=== PATIENT | male | born 1960 | race Caucasian/White ===

== ENCOUNTER 2016-11-29 08:56 | Inpatient (IN) | payer OTHER ==
[2016-11-23 10:22] VITALS: BMI 27.0
--- NOTE | 2016-11-23 10:55 | PAT Medication Instructions ---
Service Date Nov 23, 2016. Current Home Medication List Naproxen (Aleve), 440 MG PO PRN Medication Instructions For Your Scheduled Surgery - Hold the following medications the morning of surgery: Naproxen (Aleve), 440 MG PO PRN (otherwise okay to continue per surgeon) Nothing to eat or drink after midnight If you have any questions please call us at [phone] or [phone] or [phone]
--- NOTE | 2016-11-23 11:47 | DIAGNOSTIC IMAGING REPORT ---
CHEST PREADMISSION(PA/LAT) CLINICAL HISTORY: PAT preoperative evaluation COMPARISON STUDY: No previous studies for comparison. FINDINGS: The bones soft tissues and hemidiaphragms are normal. The cardiomediastinal silhouette is normal. The lungs are clear. The pulmonary vasculature is normal. IMPRESSION: Negative chest. Electronically signed by: Donte Ybarra M.D. 11/23/2016 11:46 AM Dictated Date/Time: 11/23/2016 11:46 AM
[2016-11-23 12:06] LABS: BASO % 0.2 %; BASO ABS # 0.01 K/uL (0-0.2); COMPLETE YES; EOS % 1.5 %; HEMATOCRIT 45.3 % (42-52); IG% 0.2 %; LYMPH % 34.7 %; LYMPH ABS # 1.57 K/uL (1.2-3.4); MEAN CELL VOLUME 88.8 fL (80-100); MEAN CORPUSCULAR HGB CONC 34.9 g/dl (32-36); MEAN PLATELET VOLUME 10.6 fL (7.4-10.4); MONO % 8.2 %; NEUT % 55.2 %; PLATELET COUNT 202 K/uL (130-400); WHITE BLOOD COUNT 4.53 K/uL (4.8-10.8)
[2016-11-23 12:14] LABS: PROTHROMBIN TIME (PATIENT) 10.7 SECONDS (9.0-12.0)
[2016-11-23 12:33] LABS: URINE APPEARANCE CLEAR (CLEAR); URINE BILIRUBIN NEG (NEG); URINE COLOR YELLOW; URINE EPITHELIAL CELL AUTO 0-5 /lpf (0-5); URINE NITRITE NEG (NEG); URINE PH 6.5 (4.5-7.5); UROBILINOGEN NEG (NEG)
[2016-11-23 12:37] LABS: MANUAL MICROSCOPIC REQUIRED? NO; REVIEW REQ? NO
[2016-11-23 15:10] LABS: BUN/CREATININE RATIO 16.3 (10-20); CALCIUM 8.7 mg/dl (8.5-10.1); CREATININE 0.85 mg/dl (0.60-1.40); POTASSIUM 4.2 mmol/L (3.5-5.1)
[2016-11-29] VITALS (7 sets, daily range): BP systolic 110–139; BP diastolic 67–87; PULSE 63–86; TEMP 36.3–36.6; O2SAT 95–100; Ht 177.8 cm; Wt 110.4 kg
[~2016-11-29] VITALS: Ht 177.8 cm; Wt 110.4 kg
--- NOTE | 2016-11-29 07:41 | History and Physical ---
History & Physical Date Nov 29, 2016. Chief Complaint back and leg pain History of Present Illness The patient is a 55 year old male with complaints of back , lower extremity pain. Past Medical/Surgical History Healthy Additional History Hepatic Disease: No Endocrine Disorder: No Kidney Disease: No Hypertension: No Heart Disease: No Bleeding Tendencies: No Infectious Diseases: No Allergies Coded Allergies: Fish (Verified Allergy, Severe, ANAPHYLAXIS W/ ALL SEAFOOD, 11/25/16) Fish Allergy (Verified Allergy, Severe, ANAPHYLAXIS W/ ALL SEAFOOD, ) Shellfish (Verified Allergy, Severe, ANAPHYLAXIS W/ ALL SEAFOOD, 11/25/16) Shellfish Allergy (Verified Allergy, Severe, ANAPHYLAXIS W/ ALL SEAFOOD, ) Iodinated Diagnostic Agents (Verified Allergy, Unknown, ANAPHYLAXIS, ) Home Medications Scheduled Naproxen (Aleve), 440 MG PO PRN Physical Examination Skin: warm/dry Eyes: normal inspection, sclerae normal ENT: normal ENT inspection Head: normocephalic Neck: supple, trachea midline Respiratory/Chest: lungs clear, no respiratory distress Cardiovascular: regular rate, rhythm Abdomen / GI: normal bowel sounds Back: normal inspection Extremities: normal inspection Genitourinary - Male: normal male genitalia Diagnosis spinal stenosis and severe degenerative disc L5-S1 ASA Classification: ASA Class II Plan of Treatment PLIF L5-S1
[~2016-11-29 08:56] MED LIST: CEFAZOLIN 2000 MG/60 ML D5W 60 ML IV SCH; LACTATED RINGER'S 1000ML 1,000 ML IV SCH; NAPR1TAB9 PO; NSS 1000ML IV SCH
[2016-11-29] MEDS ORDERED: FENTANYL CITRATE INJ 50 MCG/1 ML 2 ML VIAL IV PRN (11:30)
[2016-11-29] MEDS ORDERED: EpHEDrine SULFATE INJ 50 MG/ML AMP IV PRN (11:30)
[2016-11-29] MEDS ORDERED: ATROPINE SULFATE 0.1 MG/ML 5ML SYR IV PRN (11:30)
[2016-11-29] MEDS ORDERED: ONDANSETRON INJ 2 MG/ML 2 ML VIAL IV PRN ×2 (11:30→16:00)
[2016-11-29] MEDS ORDERED: HYDROmorphone INJ 1 MG/ML SYR IV PRN (11:30)
[2016-11-29] MEDS ORDERED: GELATIN SPONGE SZ 100 ONE ×2 (12:28→12:57)
[2016-11-29] MEDS ORDERED: THROMBIN FOR SOLN 20000 UNIT KIT ONE (12:28)
[2016-11-29] MEDS ORDERED: VANCOMYCIN HCL 1000MG/20ML VIAL ONE (12:28)
[2016-11-29] MEDS ORDERED: BACITRACIN 50000 UNIT VIAL ONE (12:28)
[2016-11-29] MEDS ORDERED: BUPIVACAINE/EPINEPHRINE 0.5% MPF 1:200,000 10 ML VIAL ONE ×2 (12:33→13:00)
[2016-11-29] MEDS ORDERED: LIDOCAINE HCL 2% 2 ML VIAL (20MG/ML) ONE (12:41)
[2016-11-29] MEDS ORDERED: MIDAZOLAM HCL 1 MG/ML 2ML VIAL ONE (12:42)
[2016-11-29] MEDS ORDERED: LARYING-O-JET KIT (LTA) ONE ×2 (12:42)
[2016-11-29] MEDS ORDERED: PROPOFOL IV EMULSION 10 MG/ML 20 ML VIAL IV ONE (12:42)
[2016-11-29] MEDS ORDERED: FENTANYL CITRATE INJ 50 MCG/1 ML 2 ML VIAL ONE ×2 (12:42→14:35)
[2016-11-29] MEDS ORDERED: ROCURONIUM BROMIDE 10 MG/ML 5 ML VIAL ONE (13:37)
[2016-11-29] MEDS ORDERED: EpHEDrine SULFATE 50MG/5ML SYR ONE (13:39)
[2016-11-29] MEDS ORDERED: HYDROmorphone INJ 2 MG/ML SYR/VIAL ONE (14:36)
[2016-11-29] MEDS ORDERED: DEXAMETHASONE SOD INJ 4 MG/ML VIAL ONE (15:18)
[2016-11-29] MEDS ORDERED: ONDANSETRON INJ 2 MG/ML 2 ML VIAL ONE ×2 (15:18)
--- NOTE | 2016-11-29 15:36 | DIAGNOSTIC IMAGING REPORT ---
SPINE ONE VIEW, ANY LEVEL HISTORY: Fusion. Postoperative evaluation.. FLUOROSCOPY TIME: . FINDINGS: Intraoperative fluoroscopy was provided for the lumbar spine. 1 fluoroscopic spot images were obtained. IMPRESSION: Fluoroscopy provided for a L5-S1 laminectomy and fusion. The above report was generated using voice recognition software. It may contain grammatical, syntax or spelling errors. Electronically signed by: Donte Ybarra M.D. 11/29/2016 3:35 PM Dictated Date/Time: 11/29/2016 3:34 PM
[2016-11-29] MEDS: SODIUM CHLORIDE 0.9% 1000ML 1,000 ML IV SCH (15:52)
[2016-11-29] MEDS ORDERED: SODIUM CHLORIDE 0.9% 1000ML 1,000 ML IV SCH (15:52)
--- NOTE | 2016-11-29 15:58 | [facility] Operative Report ---
Operative Report Operative Date Nov 29, 2016. Pre-Operative Diagnosis Spinal Stenosis and Severe Degenerative disc disease L5-S1 Post-Operative Diagnosis same as preop Procedure(s) Performed L5-S1 Posterior Lumbar Interbody Fusion Surgeon Dr. Venkatesh Simmons Campaign Worker Surgeon(s) Victorino Britt PA-C Estimated Blood Loss 300ML Findings Stenosis and instability L5-S1 Specimens None per surgeon Drains no drains Anesthesia Gen. anesthetic Complication(s) No complications Disposition Recovery Room / PACU Indications Back and lower extremity difficulty continue pain and inability for him to function at his job. Degenerative disc at L5-S1 stenosis L5-S1 Description of Procedure Description of procedure Patient was taken to the operating room and general intubated anesthetic provided patient He was placed prone prepped draped sterile. A skin incision fashion incision down to the 5 S1 interval the lumbar spine 5 vertebrae was quite deep seated into the pelvis. We did a classic laminectomy L5 foraminotomies partial facetectomies. I was safely able to get pedicle screws in the sacrum and the lumbar 5 vertebrae using anatomic landmarks and C-arm guidance. Please with the placement. Retracted the dura over on the left-hand side to complete discectomy at L5-S1. We prepared the interspace for interbody fusion device. The space was packed with bone and then interbody device placed. It was 26 mm in length 8 mm in height and 12 mm wide. We tightened down the construct gaited thoroughly with possibly 600 mL of fluid allografted out over the transverse processes. His [place] on the dura structures and the VAC drain as well as fascia fascia with 1 Vicryl suture. 2-0 Vicryl subcuticular layer Christen nylon the skin surface. Sterile pressure dressing applied the patient returned to recovery room satisfactory and stable condition. There were no apparent interoperative complications Bungy needle count correct at the close of procedure May blood loss 300 mL. Surgeon Venkatesh Hathaway and operating room assistant Victorino Britt. I attest to the content of the Intraoperative Record and any orders documented therein. Any exceptions are noted below.
[2016-11-29] MEDS ORDERED: MAGNESIUM HYDROXIDE SUSP 30 ML UDC PO PRN (16:00)
[2016-11-29] MEDS ORDERED: METOCLOPRAMIDE HCL INJ 5 MG/ML 2 ML VIAL IV PRN (16:00)
[2016-11-29] MEDS ORDERED: LORAZEPAM 1 MG TAB PO PRN (16:00)
[2016-11-29] MEDS ORDERED: PROMETHAZINE HCL INJ 12.5 MG in SODIUM CHLORIDE 0.9% 50ML 50 ML IV PRN (16:00)
[2016-11-29] MEDS ORDERED: NALOXONE HCL 0.4 MG/1 ML VIAL/CARP IV PRN (16:00)
[2016-11-29] MEDS ORDERED: LORAZEPAM INJ 1 MG in SYRINGE 0 ML IV PRN (16:00)
[2016-11-29] MEDS ORDERED: ACETAMINOPHEN 325 MG TAB PO PRN (16:00)
[2016-11-29] MEDS ORDERED: HYDROmorphone HCL 0.5MG/ML 50 ML CASSETTE ONE (16:04)
--- NOTE | 2016-11-29 16:29 | Anesthesiology Progress Note ---
Anesthesia Post Op Note Date & Time Nov 29, 2016 at 16:28 Vital Signs Pain Intensity: 2 Vital Signs Past 12 Hours Date Time Temp Pulse Resp B/P (MAP) Pulse Ox O2 Delivery O2 Flow Rate FiO2 11/29/16 15:50 36.4 87 14 155/88 98 Nasal Cannula 3 11/29/16 09:23 36.5 63 18 139/87 (104) 98 Room Air Notes Mental Status: alert / awake / arousable, participated in evaluation Pt Amnestic to Procedure: Yes Nausea / Vomiting: adequately controlled Pain: adequately controlled Airway Patency, RR, SpO2: stable & adequate BP & HR: stable & adequate Hydration State: stable & adequate Anesthetic Complications: no major complications apparent
[2016-11-29] MEDS: HYDROmorphone HCL 0.5MG/ML 50 ML CASSETTE IV PRN ×2 (16:50→22:49)
[2016-11-29 17:48] LABS: HEMATOCRIT 42.5 % (42-52)
[2016-11-29] MEDS: KETOROLAC TROMETHAMINE 30 MG/ML VIAL IV SCH ×2 (18:30→23:16)
[2016-11-29] MEDS: CEFAZOLIN IV 2,000 MG in DEXTROSE 5% 50ML 50 ML IV SCH (19:54)
[2016-11-30] MEDS: SODIUM CHLORIDE 0.9% 1000ML 1,000 ML IV SCH (04:03)
[2016-11-30] MEDS: CEFAZOLIN IV 2,000 MG in DEXTROSE 5% 50ML 50 ML IV SCH ×2 (04:03→12:23)
[2016-11-30 04:18] VITALS: BP 111/64; PULSE 74; TEMP 36.7; O2SAT 98
[2016-11-30] MEDS: KETOROLAC TROMETHAMINE 30 MG/ML VIAL IV SCH ×3 (05:34→17:26)
[2016-11-30] MEDS ORDERED: BISACODYL 5 MG TABEC PO PRN (06:00)
[2016-11-30] MEDS ORDERED: BISACODYL 10 MG SUPP PR PRN (06:00)
[2016-11-30] MEDS ORDERED: NURSING VERBAL MED ORDER ONE ×2 (06:15→15:30)
[2016-11-30] MEDS: HYDROmorphone HCL 0.5MG/ML 50 ML CASSETTE IV PRN (06:47)
[2016-11-30 07:30] VITALS: BP 116/68; PULSE 62; TEMP 36.5; O2SAT 100
[2016-11-30] MEDS ORDERED: OXYCODONE/ACETAMINOPHEN 5-325 TAB PO PRN (08:00)
[2016-11-30] MEDS ORDERED: HYDROmorphone INJ 2 MG/ML SYR/VIAL IV PRN (08:00)
[2016-11-30] MEDS ORDERED: DC PCA ONE (08:00)
[2016-11-30] MEDS ORDERED: HYDROmorphone INJ 1 MG/ML SYR IV PRN (08:00)
--- NOTE | 2016-11-30 08:11 | Anesthesiology Progress Note ---
Anesthesia Post Op Note Date & Time Nov 30, 2016 at 08:10 Vital Signs Pain Intensity: 5.0 Vital Signs Past 12 Hours Date Time Temp Pulse Resp B/P (MAP) Pulse Ox O2 Delivery O2 Flow Rate FiO2 11/30/16 04:18 36.7 74 16 111/64 (80) 98 Room Air 11/29/16 23:23 Room Air 11/29/16 22:54 36.5 79 16 111/71 (84) 95 Room Air 11/29/16 20:50 77 16 112/75 (87) 95 Room Air Notes Mental Status: alert / awake / arousable, participated in evaluation Pt Amnestic to Procedure: Yes Nausea / Vomiting: adequately controlled Pain: adequately controlled Airway Patency, RR, SpO2: stable & adequate BP & HR: stable & adequate Hydration State: stable & adequate Anesthetic Complications: no major complications apparent
--- NOTE | 2016-11-30 08:21 | Progress Note ---
Subjective Date of Service: Nov 30, 2016. Subjective Pt evaluation today including: conversation w/ patient, conversation w/ family Voiding: no voiding problems Problem List R patient is approximately 20 hours post lot lumbar spinal surgery doing well the short run Review of Systems Denies denies confusion no shortness of breath chest pain some improvement of his right lower extremity and left lower extremity. Medications Medications reviewed Objective Vital Signs Date Time Temp Pulse Resp B/P (MAP) Pulse Ox O2 Delivery O2 Flow Rate FiO2 11/30/16 07:30 36.5 62 18 116/68 (84) 100 Room Air 11/30/16 04:18 36.7 74 16 111/64 (80) 98 Room Air 11/29/16 23:23 Room Air 11/29/16 22:54 36.5 79 16 111/71 (84) 95 Room Air 11/29/16 20:50 77 16 112/75 (87) 95 Room Air 11/29/16 19:40 36.3 78 18 128/72 (90) 100 Nasal Cannula 2.0 11/29/16 18:48 75 16 110/67 (81) 100 Room Air 2.0 11/29/16 17:50 36.5 78 16 131/75 (93) 99 Nasal Cannula 2.0 11/29/16 17:15 36.4 78 16 131/81 (98) 99 Nasal Cannula 2.0 11/29/16 17:15 36.6 86 16 124/74 (91) 98 Nasal Cannula 2.0 11/29/16 16:45 Nasal Cannula 2.0 11/29/16 16:45 98 Nasal Cannula 2.0 11/29/16 16:33 36.9 11/29/16 16:31 126/68 11/29/16 16:30 72 16 11/29/16 16:30 72 16 96 11/29/16 16:26 134/69 11/29/16 16:25 74 14 11/29/16 16:25 72 14 97 11/29/16 16:22 129/75 11/29/16 16:20 76 14 98 11/29/16 16:20 75 14 11/29/16 16:17 128/71 11/29/16 16:15 74 12 97 11/29/16 16:15 74 12 11/29/16 16:11 140/77 11/29/16 16:10 83 14 98 11/29/16 16:10 83 14 11/29/16 16:07 138/76 11/29/16 16:05 87 22 97 11/29/16 16:05 86 22 11/29/16 16:01 146/85 11/29/16 16:00 83 18 99 11/29/16 16:00 84 18 11/29/16 15:56 155/88 11/29/16 15:55 92 8 11/29/16 15:55 92 8 98 11/29/16 15:50 36.4 87 14 155/88 98 Nasal Cannula 3 11/29/16 09:23 36.5 63 18 139/87 (104) 98 Room Air Laboratory Results Last 24 Hours Test 11/29/16 17:27 Hemoglobin 15.0 g/dL Hematocrit 42.5 % Assessment and Plan Single level lumbar spinal surgery a posterior lumbar interbody fusion 5 S1 doing well in the short run. Disposition: We'll get the patient up ambulatory today hopefully discharge home tomorrow which would be November 30 to his own home with home health or likely discharge around 2 or 3:00 in the afternoon Discharge planning: home
[2016-11-30 08:36] VITALS: O2SAT 100
[2016-11-30] MEDS: POLYETHYLENE (MIRALAX) 17 GM PACK PO SCH (10:00)
[2016-11-30] MEDS: OXYCODONE/ACETAMINOPHEN 5-325 TAB PO PRN ×2 (11:08→21:36)
[2016-11-30 12:11] VITALS: BP 110/68; PULSE 63; TEMP 36.6; O2SAT 100
--- NOTE | 2016-11-30 12:47 | Discharge Instructions ---
Discharge Instructions Date of Service Nov 30, 2016. Admission Reason for Admission: Lumbar Degenerative Joint Disease Discharge Discharge Diagnosis / Problem: spinal stenosis Discharge Goals Goal(s): Improve function Activity Recommendations Activity Limitations: as noted below Lifting Limitations: until after follow-up appointment Exercise/Sports Limitations: until after follow-up appointment May Resume Sexual Activity: after follow-up appointment Shower/Bathe: keep incision dry careful with bending, lifting . Instructions / Follow-Up Instructions / Follow-Up MEDICATIONS: Please take your prescriptions as instructed at your pre-op appointment. SPECIAL CARE: The following information is intended to answer some of the common questions and concerns regarding your surgery. Each patient is an individual and receives individual counselling throughout the course of treatment, from diagnosis to surgery all the way through recovery. What follows is not an exhaustive list, but should be a useful guide to some of the common questions and concerns patients have regarding their surgeries. These are not provided to keep you from calling us; rather, they give you something accurate and concrete to reference as you recover from your procedure. If you need us, we are available to you. As always, if you are not sure about something, call us at [phone]. MEDICAL EMERGENCIES: For these conditions, call 911 or go to your local hospital-based Emergency Department - not [facility] or equivalent. * Paralysis * Severe chest pain or difficulty breathing * Swelling or redness of either leg Spine procedures can be rather complex and though complications are rare, they do occur. In such cases, effective advice regarding emergency situations cannot always be addressed over the telephone. You may be referred to the emergency department for more effective management of your problem. Activity Limitations: It is important to give your body time to heal, so please limit your activities : * In general, don't do anything that moves your spine too much. You should avoid contact sports, twisting or heavy lifting while you recover. * 5-10 pounds is all you should attempt to lift. * You should not plan on driving for approximately 3 weeks and you should avoid traveling more than 30-45 minutes at a time. Longer trips should be broken down with walking breaks spaced appropriately. * Physical therapy is not usually required. * Walking and good posture practices will help you recover and regain your function. * Avoid straining or sudden changes in position. * In general, the goal is to take it easy and recover. Don't cause any new problems. Just relax. Showers: * Do not take a bath, use a Jacuzzi or hot tub or otherwise submerge your incision. * It is usually safe to take a shower 4-5 days after your surgery. * Your incision does not require any special creams or ointments. * Simply clean it with soap and water, dry and re-dress with a clean bandage afterwards. Incision: * Keep incision clean, dry and protected until your first follow-up appointment. * Some amount of drainage and redness is normal. Any drainage should be fairly clear and not have a foul odor. * If you feel anything is wrong or you have excessive drainage, please call us. * Your stitches and kirby will be removed 10-14 days after your surgery. At the time of your first post-op visit. * Neck surgeries are typically closed with a suture underneath the skin. The steri-strips over the incision should be maintained until we see you in the office. Bracing: * You may be provided with a back or neck brace to encourage good posture and prevent injury. It will remind you not to do too much as you heal and will alert others to the fact that you have had a surgery. * Back braces may be removed for showers and when you are resting at home. They must be worn when you are walking around for any period of time or for travel. * For neck surgery, you will likely be provided with two cervical collars. The soft collar ([place] or foam rubber) is worn most commonly throughout the day and while sleeping. The plastic collar (provided at the hospital) is for showering/bathing. * Except while eating, collars should remain in place. More specifically, bracing is provided for a purpose and should be worn. * Please obtain your brace or collars prior to your operation and bring them to the hospital with you on the day of surgery. * You should also bring your collars to your post-op appointment with Dr. Simmons. You should always take good care of your body and practice healthy habits, especially following surgery. You should: * Follow your doctor's treatment plan * Sit and stand properly with good posture (ears over shoulders, shoulders over hips) Don't slouch * Learn to lift correctly * Exercise regularly (low-impact aerobic exercise is especially good, but check with your doctor first) * Generally, be up and walking for 5-10 minutes at a time at least 3-4 times per day from the day you get home * Increasing walking to tolerance until you can walk for 20-30 minutes at a time * Attain and maintain a healthy body weight * Eat healthy foods ( a well-balanced, low-fat diet rich in fruits and vegetables) and get enough calcium * Avoid excessive use of alcohol When to call our office - If you notice any of the following: * Increased pain not relieve by pain medicine * Fevers greater then 100 degrees F, chills or flu symptoms * Increased redness around incision * Drainage from the incision that is not clear * Any foul smelling drainage * Swelling or fluid collection beneath the skin Miscellaneous: * In the hospital, you may be given a walker or cane for support while walking. These are temporary needs and are intended to prevent injuries due to falls. You may discontinue them when you feel strong and steady enough on your feet. * Sleep in a comfortable position. We find that many patients find a lounge chair or recliner with several pillows to be beneficial in the early post-operative period. * The support stockings should be used for 7-10 days and may be discontinued when you are back to walking more and conducting usual household activities. No problem is insignificant. We are here to help you and get you well. Contact us at [phone]. Definitions: Foraminotomy: If part of the disc or a bone spur (osteophyte) is pressing on a nerve as it leaves the vertebra (through an exit called the foramen), a foraminotomy may be done. Otomy means "to make an opening." A foraminotomy is making the opening of the foramen larger, so the nerve can exit without being compressed. Laminotomy: Similar to the foraminotomy, a laminotomy makes a larger opening, this time in your bony plate protecting your spinal canal and spinal cord (the lamina). The lamina may be pressing on your nerve, so the surgeon may make more room for the nerves using a laminotomy. Laminectomy: Sometimes, a laminotomy is not sufficient. The surgeon may need to remove all or part of the lamina. This procedure is called a laminectomy. This can often be done at many levels without any harmful effects. Current Hospital Diet Patient's current hospital diet: Regular Diet Discharge Diet Recommended Diet: Regular Diet Procedures Procedures Performed: L5-S1 Posterior Lumbar Interbody Fusion Pending Studies Studies pending at discharge: no Medical Emergencies . Who to Call and When: Medical Emergencies: If at any time you feel your situation is an emergency, please call 911 immediately. . Non-Emergent Contact Non-Emergency issues call your: Primary Care Provider . "Provider Documentation" section prepared by Venkatesh Simmons. . VTE Core Measure Inpt VTE Proph given/why not?: Treatment not indicated
[2016-11-30 15:00] VITALS: BP 123/67; PULSE 73; TEMP 36.8; O2SAT 98
[2016-11-30] MEDS ORDERED: ALUMINUM/MAGNESIUM SUSP 30 ML UDC PO PRN (16:30)
[2016-12-01 00:07] VITALS: BP 110/69; PULSE 69; TEMP 37.1; O2SAT 96
[2016-12-01] MEDS: OXYCODONE/ACETAMINOPHEN 5-325 TAB PO PRN ×2 (04:29→10:50)
[2016-12-01 07:07] VITALS: BP 104/58; PULSE 69; TEMP 36.6; O2SAT 96
--- NOTE | 2016-12-01 08:07 | Discharge Summary ---
Orthopedic Discharge Summary Admission Date/Reason Nov 29, 2016 at 09:21 Lumbar Degenerative Joint Disease. Discharge Date/Disposition Dec 01, 2016 Home Diagnosis Principal Diagnosis: Severe degenerative arthritis L5-S1 lumbar spine Procedure(s) Performed Posterior lumbar interbody fusion L5-S1 Medication Reconciliation Patient to resume all home medications prior to his admission. He was discharged home on a prescription for Percocet 5 mg one or 2 every 4-6 hours when necessary for pain Admission Physical Exam As per Admitting History & Physical. Hospital Course Patient was admitted after surgery was 48 hours earlier. Ambulatory day 1 and 2 no complications was alert oriented no neurological deficits no chest pain shortness of breath. Discharge home on the morning of December 01 improved stable condition. Thank you Discharge Instructions Please refer to the electronic Patient Visit Report (Discharge Instructions) for additional information.
--- NOTE | 2016-12-01 08:13 | Discharge Summary ---
Orthopedic Discharge Summary Admission Date/Reason Nov 29, 2016 at 09:21 Lumbar Degenerative Joint Disease. Discharge Date/Disposition Dec 01, 2016 Home Diagnosis Principal Diagnosis: severe arthritis Procedure(s) Performed plif l5-s1 Admission Physical Exam As per Admitting History & Physical. Discharge Instructions Please refer to the electronic Patient Visit Report (Discharge Instructions) for additional information.
[2016-12-01] MEDS: POLYETHYLENE (MIRALAX) 17 GM PACK PO SCH (08:37)
[2016-12-01 10:52] VITALS: BP 104/58; PULSE 69; TEMP 36.6; O2SAT 96
== END 2016-12-01 11:05 | disposition home or self-care (01) | DRG 460 ==
LOC: C.ACU 08:56 → C.3E 09:21 → ENRESERV 16:23
PROVIDERS: ADMIT Orthopaedic Surgery Orthopaedic Surgery of the Spine; ATTEND Orthopaedic Surgery Orthopaedic Surgery of the Spine
PROC: 0ST40ZZ Resection of Lumbosacral Disc, Open Approach (ICD-10-PCS; principal; 2016-11-29 11:00)
PROC: 0SG30AJ Fusion of Lumbosacral Joint with Interbody Fusion Device, Posterior Approach, Anterior Column, Open Approach (ICD-10-PCS; principal; 2016-11-29 11:00)
DX: M51.37 Other intervertebral disc degeneration, lumbosacral region (principal); M48.07 Spinal stenosis, lumbosacral region